=== PATIENT | male | born 1950 | race Two or more races ===

== ENCOUNTER 2021-05-17 08:00 | Outpatient (CLI) | payer OTHER | END 2021-05-17 08:30 | disposition home or self-care (01) | LOC: PPH VACUNA 08:00 | PROVIDERS: ATTEND Emergency Medicine Pediatric Emergency Medicine | DX: Z23 Encounter for immunization (principal) ==

== ENCOUNTER 2022-03-28 11:45 | Inpatient (IN) | payer OTHER ==
[~2022-03-28] VITALS: Ht 180.3 cm; Wt 79.8 kg
[2022-03-28] MEDS ORDERED: AVAPRO300 MG PO (16:29)
[2022-03-28] MEDS ORDERED: UROXATRAL10 MG PO (16:30)
== END 2022-04-03 12:21 | disposition home or self-care (01) | DRG 708 ==
LOC: O/R 04-01 06:00 → SURG 04-01 07:00 → SURH 04-01 12:13
PROVIDERS: ADMIT Urology; ATTEND Urology
PROC: 07BC0ZZ Excision of Pelvis Lymphatic, Open Approach (ICD-10-PCS; 2022-04-01)
PROC: 0VT00ZZ Resection of Prostate, Open Approach (ICD-10-PCS; principal; 2022-04-01 07:00)
DX: C61 Malignant neoplasm of prostate (principal); Z20.822 Contact with and (suspected) exposure to COVID-19

== ENCOUNTER 2022-04-17 17:29 | Emergency (ER) | payer OTHER ==
[~2022-04-17] VITALS: Ht 182.9 cm; Wt 81.6 kg
[~2022-04-17 17:29] MED LIST: AVAPRO300 MG PO; UROXATRAL10 MG PO
[2022-04-17] MEDS ORDERED: CEFUROXIME500 MG (18:24)
[2022-04-17] MEDS ORDERED: CIPRO500 MG (18:25)
[2022-04-17] MEDS ORDERED: [UNRECOGNIZED DRUG - OTHER] (18:26)
[2022-04-17] MEDS ORDERED: KETOROLAC TROME10 MG (18:27)
== END 2022-04-17 20:35 | disposition home or self-care (01) ==
LOC: ER 17:29
DX: M79.605 Pain in left leg (principal)

== ENCOUNTER 2022-04-18 06:52 | Emergency (ER) | payer OTHER ==
[~2022-04-18] VITALS: Ht 182.9 cm; Wt 80.3 kg
[~2022-04-18 06:52] MED LIST changes: +CEFUROXIME500 MG; +CIPRO500 MG; +KETOROLAC TROME10 MG; +[UNRECOGNIZED DRUG - OTHER]
== END 2022-04-18 09:30 | disposition left against medical advice (07) ==
LOC: ER 06:52
DX: Z53.21 Procedure and treatment not carried out due to patient leaving prior to being seen by health care provider (principal)

== ENCOUNTER 2022-05-16 11:28 | Outpatient (CLI) | payer OTHER | END 2022-05-16 11:32 | disposition home or self-care (01) | LOC: SONOGRAMA 11:28 | PROVIDERS: ATTEND Urology | DX: N23 Unspecified renal colic (principal) ==